=== PATIENT | female | born 1970 | race Two or more races ===

== ENCOUNTER → 2019-03-13 | Outpatient (CLI) | payer OTHER ==
--- NOTE | 2019-03-13 12:42 | RAD ---
EXAM: Pelvic sonogram. HISTORY: Irregular menstrual bleeding. TECHNIQUE: Transabdominal and transvaginal sonographic imaging of the pelvis was performed. COMPARISON: None. FINDINGS: The uterus measures 12.2 x 7.1 cm. There is a thickened endometrial stripe measuring 20 mm. The ovaries are normal in size and demonstrate normal blood flow. There are small bilateral ovarian follicles. There is no pelvic free fluid. IMPRESSION: 1. Thickened endometrial stripe measuring 20 mm. 2. Prominent uterus size. No focal lesion is seen. Electronically signed by: Ting Lauren MD (03/13/2019 12:40 PM) [place] [id number]
== END | disposition home or self-care (01) ==
LOC: US 10:47
PROVIDERS: ATTEND Registered Nurse
DX: N92.6 Irregular menstruation, unspecified (principal)
CPT/HCPCS: 76830; 76856